=== PATIENT | female | born 1945 | race African-American/Black ===

== ENCOUNTER 2017-11-07 10:08 | Inpatient (IN) | payer OTHER ==
[~2017-11-07] VITALS: Ht 160 cm; Wt 68.5 kg
[~2017-11-07 10:08] MED LIST: ATEN-42 PO; ATOR10TA69 PO; FURO40TA5 PO; LOSA100T14 PO; SODI650T PO
[2017-11-07 11:04] LABS: HEMATOCRIT. 37.5 % (36.0-48.0); HEMOGLOBIN. 11.9 g/dL (12.0-16.0); MEAN CORPUSCULAR HEMOGLOBIN 24.5 pg (28.0-32.0); MEAN CORPUSCULAR VOLUME 77.4 fL (81.0-99.0); PLATELET 113 x1000/uL (130-400); RED BLOOD CELL COUNT 4.84 mill/uL (4.2-5.4); RED CELL DISTRIBUTION WIDTH 17.8 % (11.6-14.6)
[2017-11-07 11:15] LABS: AMMONIA < 10 uMol/L (<32)
[2017-11-07 11:17] LABS: CHLORIDE 93 mEq/L (98-107)
[2017-11-07 11:24] LABS: PLATELET ESTIMATE SLIGHTLY DECREASED
[2017-11-07] MEDS ORDERED: PIPERACILLIN/TAZ 3.375G PREMIX 50 ML IV NR (11:45)
[2017-11-07] MEDS ORDERED: VANCOMYCIN 500 MG in DEXT 5% WATER 100 ML IV SCH (11:45)
[2017-11-07] MEDS ORDERED: METOPROLOL TARTRATE 25MG TABLET PO ONE (12:00)
[2017-11-07] MEDS ORDERED: ENOXAPARIN 60MG/0.6ML SYR SUBCUT ONE (12:00)
[2017-11-07] MEDS ORDERED: ASPIRIN 325MG EC TABLET PO ONE (12:00)
[2017-11-07 12:21] LABS: INR 1.3; PARTIAL THROMBOPLASTIN TIME 34.4 sec (23.4-31.0); PROTHROMBIN TIME 13.2 sec (9.4-11.6)
[2017-11-07] MEDS ORDERED: ASPIRIN 300MG SUPP PR ONE (12:45)
[2017-11-07 15:48] VITALS: BP 95/56
[2017-11-07 16:00] VITALS: BP 114/37
[2017-11-07] MEDS ORDERED: DOCUSATE SODIUM 100MG CAPSULE PO PRN (16:30)
[2017-11-07] MEDS ORDERED: NA PHOS,M-B/NA PHOS,DI-BA ENEMA 118ML PR PRN (16:30)
[2017-11-07] MEDS ORDERED: CLONIDINE 0.1MG TABLET PO PRN (16:30)
[2017-11-07] MEDS ORDERED: MAGNESIUM/ALUMINUM HYDROXIDE/SIMETHICONE 30ML UDC PO PRN (16:30)
[2017-11-07] MEDS ORDERED: GUAIFENESIN 200MG/10ML SUGAR FREE UDC PO PRN (16:30)
[2017-11-07] MEDS ORDERED: ONDANSETRON HCL 4MG/2ML VIAL IV PRN (16:30)
[2017-11-07] MEDS ORDERED: DIPHENHYDRAMINE 50MG/ML VIAL IV PRN (16:30)
[2017-11-07] MEDS ORDERED: LORAZEPAM 2MG/ML CPJ IV PRN (16:30)
[2017-11-07] MEDS ORDERED: IPRATROPIUM/ALBUTEROL 0.5-3(2.5)MG/3ML NEB INH PRN (16:30)
[2017-11-07] MEDS ORDERED: ISOS30TA6 PO (16:44)
[2017-11-07] MEDS ORDERED: ASPI-1159 MT (16:44)
[2017-11-07] MEDS: HYDROMORPHONE HCL/PF 2MG/ML CPJ IV PRN ×2 (16:53→21:00)
[2017-11-07 17:52] VITALS: BP 100/43
[2017-11-07] MEDS ORDERED: LEVOFLOXACIN 500MG PREMIX 100 ML IV NR (18:00)
[2017-11-07 20:00] VITALS: BP 103/52
[2017-11-07] MEDS: BLOOD SUGAR DIAGNOSTIC STRIP TEST SCH (21:00)
[2017-11-07] MEDS ORDERED: ACETAMINOPHEN 650MG SUPP PR PRN (21:30)
[2017-11-07] MEDS: INSULIN LISPRO 100 UNITS/ML SUBCUT SCH (21:37)
[2017-11-07 22:00] VITALS: BP 90/37
[2017-11-08] VITALS (42 sets, daily range): BP systolic 49–139; BP diastolic 23–77
[2017-11-08] MEDS: DEXTROSE 50% WATER 50ML SYRINGE IV PRN (06:03)
[2017-11-08] MEDS: HYDROMORPHONE HCL/PF 2MG/ML CPJ IV PRN ×2 (06:23→22:16)
[2017-11-08] MEDS: BLOOD SUGAR DIAGNOSTIC STRIP TEST SCH ×4 (06:45→20:45)
[2017-11-08 07:13] LABS: HEMATOCRIT. 36.9 % (36.0-48.0); HEMOGLOBIN. 11.5 g/dL (12.0-16.0); MEAN CORPUSCULAR HEMOGLOBIN 24.7 pg (28.0-32.0); MEAN CORPUSCULAR VOLUME 79.1 fL (81.0-99.0); MEAN PLATELET VOLUME 12.4 fl (7.4-10.4); PLATELET 86 x1000/uL (130-400); RED BLOOD CELL COUNT 4.67 mill/uL (4.2-5.4); RED CELL DISTRIBUTION WIDTH 17.8 % (11.6-14.6)
[2017-11-08] MEDS: INSULIN LISPRO 100 UNITS/ML SUBCUT SCH ×4 (07:20→20:45)
[2017-11-08 07:59] LABS: CHLORIDE 96 mEq/L (98-107)
[2017-11-08 08:07] LABS: LDL CHOLESTEROL 39 mg/dL (5-100)
[2017-11-08 08:08] LABS: HDL CHOLESTEROL 13 mg/dL (40-59)
[2017-11-08 08:09] LABS: T4 FREE 1.54 ng/dL (0.76-1.46)
[2017-11-08 08:34] LABS: BG BASE EXCESS -3.3 mmol/L (-2.0-2.0); BG CARBOXYHEMOGLOBIN 1.2 % (0.5-1.5); BG DEOXYHEMOGLOBIN 6.1 % (0.0-5.0); BG FRACTION INSPIRED OXYGEN 21; BG HCO3 ACT 21.2 mmol/L (22.0-26.0); BG METHEMOGLOBIN 0.1 % (0.0-1.5); BG OXYHEMOGLOBIN 92.6 % (94.0-97.0); BG PCO2 36.4 mmHg (35.0-45.0); BG PH 7.383 (7.350-7.450); BG PO2 74.1 mmHg (75.0-100.0); BG SAMPLE SITE RIGHT BRACHIAL; BG TOTAL HEMOGLOBIN 12.2 g/dL (12.0-18.0); BG VENT MODE ROOM AIR
[2017-11-08] MEDS ORDERED: ASPIRIN 81MG EC TABLET PO SCH (09:00)
[2017-11-08] MEDS ORDERED: ENOXAPARIN 30MG/0.3ML SYR SUBCUT SCH (09:00)
[2017-11-08] MEDS ORDERED: ENOXAPARIN 80MG/0.8ML SYR SUBCUT SCH (11:00)
[2017-11-08] MEDS: METOPROLOL TARTRATE 25MG TABLET PO SCH ×2 (11:00→20:45)
[2017-11-08] MEDS ORDERED: SODIUM BICARBONATE 8.4% 1 MEQ/ML 50ML SYR IV NR (12:18)
[2017-11-08] MEDS: ASPIRIN 81MG TABLET PO SCH (12:42)
[2017-11-08 13:18] LABS: PLATELET ESTIMATE DECREASED
[2017-11-08] MEDS: SODIUM BICARBONATE 50 MEQ in DEXTROSE 5% WATER 1,000 ML IV SCH (14:00)
[2017-11-08 14:38] LABS: CREATINE KINASE 2314 IU/L (26-192)
[2017-11-08] MEDS ORDERED: VANCOMYCIN 750 MG PREMIX 150 ML IV NR (15:00)
[2017-11-08] MEDS: PIPERACILLIN/TAZ 2.25G PREMIX 50 ML IV SCH ×2 (15:47→22:23)
[2017-11-08] MEDS: HYDROCODONE/ACETAMINOPHEN 5/325MG TABLET PO PRN (17:01)
[2017-11-08] MEDS ORDERED: PHENYLEPHRINE 20 MG in DEXT 5% WATER 248 ML IV PRN ×2 (22:15→22:45)
[2017-11-08] MEDS ORDERED: NOREPINEPHRINE 8 MG in DEXT 5% WATER 242 ML IV PRN (22:45)
[2017-11-08] MEDS: NOREPINEPHRINE 8 MG in DEXT 5% WATER 242 ML IV PRN (22:57)
[2017-11-09] VITALS (106 sets, daily range): BP systolic 87–165; BP diastolic 31–90
[2017-11-09] MEDS: INSULIN LISPRO 100 UNITS/ML SUBCUT SCH ×4 (08:19→21:51)
[2017-11-09] MEDS: DEXTROSE 50% WATER 50ML SYRINGE IV PRN ×2 (08:19→08:51)
[2017-11-09] MEDS: BLOOD SUGAR DIAGNOSTIC STRIP TEST SCH ×4 (08:19→21:50)
[2017-11-09] MEDS: PIPERACILLIN/TAZ 2.25G PREMIX 50 ML IV SCH ×3 (08:23→21:50)
[2017-11-09] MEDS: ASPIRIN 81MG TABLET PO SCH ×2 (08:52→15:27)
[2017-11-09] MEDS: METOPROLOL TARTRATE 25MG TABLET PO SCH ×2 (08:52→21:00)
[2017-11-09] MEDS ORDERED: SODIUM BICARBONATE 4% (2.4MEQ) 5ML VIAL IV ONE (09:08)
[2017-11-09] MEDS ORDERED: LIDOCAINE HCL/PF 1% 10 MG/ML 5ML VIAL ONE (09:08)
[2017-11-09 11:06] LABS: HEMATOCRIT. 34.1 % (36.0-48.0); HEMOGLOBIN. 11.1 g/dL (12.0-16.0); MEAN CORPUSCULAR HEMOGLOBIN 24.9 pg (28.0-32.0); MEAN CORPUSCULAR VOLUME 76.7 fL (81.0-99.0); MEAN PLATELET VOLUME 10.7 fl (7.4-10.4); PLATELET 71 x1000/uL (130-400); RED BLOOD CELL COUNT 4.45 mill/uL (4.2-5.4); RED CELL DISTRIBUTION WIDTH 16.8 % (11.6-14.6)
[2017-11-09 12:10] LABS: PLATELET ESTIMATE DECREASED
[2017-11-09] MEDS: PANTOPRAZOLE SODIUM 40 MG/VIAL IV SCH (13:03)
[2017-11-09] MEDS ORDERED: VANCOMYCIN 1 G PREMIX 200 ML IV SCH (14:30)
[2017-11-09] MEDS: ACETAMINOPHEN 325MG TABLET PO PRN (15:26)
[2017-11-09] MEDS: SODIUM BICARBONATE 50 MEQ in DEXTROSE 5% WATER 1,000 ML IV SCH (16:28)
[2017-11-09] MEDS ORDERED: IOHEXOL-300 100 ML BOTTLE ONE (17:43)
[2017-11-09] MEDS ORDERED: LEVOFLOXACIN 250MG PREMIX 50 ML IV SCH (18:00)
[2017-11-10] VITALS (45 sets, daily range): BP systolic 97–164; BP diastolic 38–85
[2017-11-10] MEDS: HYDROCODONE/ACETAMINOPHEN 5/325MG TABLET PO PRN (02:13)
[2017-11-10 03:33] LABS: BG BASE EXCESS 4.4 mmol/L (-2.0-2.0); BG DEOXYHEMOGLOBIN 1.2 % (0.0-5.0); BG FRACTION INSPIRED OXYGEN 32; BG HCO3 ACT 28.9 mmol/L (22.0-26.0); BG METHEMOGLOBIN 0.3 % (0.0-1.5); BG OXYGEN SATURATION 98.8 % (92.0-98.5); BG OXYHEMOGLOBIN 97.5 % (94.0-97.0); BG PCO2 42.9 mmHg (35.0-45.0); BG PH 7.447 (7.350-7.450); BG PO2 132.3 mmHg (75.0-100.0); BG SAMPLE SITE RIGHT RADIAL; BG TOTAL HEMOGLOBIN 13.8 g/dL (12.0-18.0); BG VENT MODE NASAL CANNULA
[2017-11-10 05:39] LABS: BASOPHILS % 0.2 % (0.0-2.0); EOSINOPHILS % 0.6 % (0.0-5.0); HEMATOCRIT. 36.5 % (36.0-48.0); HEMOGLOBIN. 12.1 g/dL (12.0-16.0); LYMPHOCYTES % 9.1 % (20.0-50.0); MEAN CORPUSCULAR HEMOGLOBIN 25.4 pg (28.0-32.0); MEAN CORPUSCULAR VOLUME 76.4 fL (81.0-99.0); MONOCYTES % 8.6 % (2.0-8.0); NEUTROPHILS % 81.5 % (40.0-76.0); RED BLOOD CELL COUNT 4.78 mill/uL (4.2-5.4)
[2017-11-10] MEDS: PIPERACILLIN/TAZ 2.25G PREMIX 50 ML IV SCH ×3 (06:26→21:38)
[2017-11-10] MEDS: BLOOD SUGAR DIAGNOSTIC STRIP TEST SCH ×3 (08:34→18:08)
[2017-11-10] MEDS: METOPROLOL TARTRATE 25MG TABLET PO SCH ×2 (09:00→21:00)
[2017-11-10] MEDS: ASPIRIN 81MG TABLET PO SCH (09:00)
[2017-11-10] MEDS: PANTOPRAZOLE SODIUM 40 MG/VIAL IV SCH (09:29)
[2017-11-10] MEDS: INSULIN LISPRO 100 UNITS/ML SUBCUT SCH ×3 (09:29→18:04)
[2017-11-10] MEDS ORDERED: INSULIN LISPRO 100 UNITS/ML SUBCUT SCH (12:00)
[2017-11-10 15:27] LABS: MEAN PLATELET VOLUME 12.7 fl (7.4-10.4); PLATELET 82 x1000/uL (130-400)
[2017-11-10] MEDS: CEFAZOLIN 2,000 MG in DEXT 5% WATER 100 ML IV SCH (18:00)
[2017-11-10] MEDS ORDERED: DOCUSATE SODIUM SUGAR FREE 100MG/10ML UDC PO PRN (18:00)
[2017-11-11] VITALS (65 sets, daily range): BP systolic 55–170; BP diastolic 15–74
[2017-11-11] MEDS: BLOOD SUGAR DIAGNOSTIC STRIP TEST SCH ×5 (00:39→23:20)
[2017-11-11] MEDS: INSULIN LISPRO 100 UNITS/ML SUBCUT SCH ×5 (00:40→23:24)
[2017-11-11] MEDS: PIPERACILLIN/TAZ 2.25G PREMIX 50 ML IV SCH ×3 (05:39→21:16)
[2017-11-11 06:17] LABS: BASOPHILS % 0.3 % (0.0-2.0); EOSINOPHILS % 0.7 % (0.0-5.0); HEMOGLOBIN. 10.7 g/dL (12.0-16.0); MEAN CORPUSCULAR HEMOGLOBIN 24.3 pg (28.0-32.0); MEAN CORPUSCULAR VOLUME 75.2 fL (81.0-99.0); MONOCYTES % 7.1 % (2.0-8.0); NEUTROPHILS % 76.9 % (40.0-76.0); RED BLOOD CELL COUNT 4.39 mill/uL (4.2-5.4); RED CELL DISTRIBUTION WIDTH 16.9 % (11.6-14.6)
[2017-11-11 06:49] LABS: MEAN PLATELET VOLUME 11.5 fl (7.4-10.4)
[2017-11-11 06:52] LABS: PLATELET 77 x1000/uL (130-400)
[2017-11-11] MEDS: METOPROLOL TARTRATE 25MG TABLET PO SCH (09:00)
[2017-11-11] MEDS: PANTOPRAZOLE SODIUM 40 MG/VIAL IV SCH (09:04)
[2017-11-11] MEDS: ASPIRIN 81MG TABLET PO SCH (09:05)
[2017-11-11] MEDS: NOREPINEPHRINE 8 MG in DEXT 5% WATER 242 ML IV PRN ×2 (10:14→18:23)
[2017-11-11] MEDS: IPRATROPIUM/ALBUTEROL 0.5-3(2.5)MG/3ML NEB HHN SCH ×2 (12:58→20:12)
[2017-11-11] MEDS ORDERED: SODIUM CHLORIDE 0.9% 250 ML IV NR (14:30)
[2017-11-11] MEDS: CEFAZOLIN 2,000 MG in DEXT 5% WATER 100 ML IV SCH (14:33)
[2017-11-11 14:55] LABS: BG BASE EXCESS 4.9 mmol/L (-2.0-2.0); BG CARBOXYHEMOGLOBIN 0.9 % (0.5-1.5); BG DEOXYHEMOGLOBIN 0.3 % (0.0-5.0); BG FRACTION INSPIRED OXYGEN 99.8; BG HCO3 ACT 28.4 mmol/L (22.0-26.0); BG METHEMOGLOBIN 0.3 % (0.0-1.5); BG OXYGEN SATURATION 99.7 % (92.0-98.5); BG OXYHEMOGLOBIN 98.5 % (94.0-97.0); BG PH 7.492 (7.350-7.450); BG PO2 438.3 mmHg (75.0-100.0); BG SAMPLE SITE RIGHT RADIAL; BG TOTAL HEMOGLOBIN 12.7 g/dL (12.0-18.0); BG VENT MODE MASK - NRB
[2017-11-11] MEDS ORDERED: NOREPINEPHRINE BITARTRATE 1MG/ML 4ML IV ONE (18:24)
[2017-11-12] VITALS (89 sets, daily range): BP systolic 75–148; BP diastolic 20–82
[2017-11-12] MEDS: NOREPINEPHRINE 8 MG in DEXT 5% WATER 242 ML IV PRN ×3 (00:39→20:12)
[2017-11-12] MEDS: IPRATROPIUM/ALBUTEROL 0.5-3(2.5)MG/3ML NEB HHN SCH ×4 (01:56→20:43)
[2017-11-12] MEDS: BLOOD SUGAR DIAGNOSTIC STRIP TEST SCH ×3 (05:11→17:23)
[2017-11-12] MEDS: PIPERACILLIN/TAZ 2.25G PREMIX 50 ML IV SCH (05:14)
[2017-11-12] MEDS: INSULIN LISPRO 100 UNITS/ML SUBCUT SCH ×3 (05:16→17:35)
[2017-11-12 06:01] LABS: BASOPHILS % 0.2 % (0.0-2.0); EOSINOPHILS % 0.2 % (0.0-5.0); HEMATOCRIT. 37.1 % (36.0-48.0); LYMPHOCYTES % 9.9 % (20.0-50.0); MEAN CORPUSCULAR HEMOGLOBIN 24.5 pg (28.0-32.0); MEAN CORPUSCULAR VOLUME 75.7 fL (81.0-99.0); MONOCYTES % 7.8 % (2.0-8.0); NEUTROPHILS % 81.9 % (40.0-76.0); RED CELL DISTRIBUTION WIDTH 16.9 % (11.6-14.6)
[2017-11-12] MEDS: ACETAMINOPHEN 325MG TABLET PO PRN (06:21)
[2017-11-12 08:03] LABS: PLATELET 105 x1000/uL (130-400)
[2017-11-12] MEDS: PANTOPRAZOLE SODIUM 40 MG/VIAL IV SCH (09:46)
[2017-11-12] MEDS ORDERED: ACETAMINOPHEN 325MG TABLET PO PRN (10:00)
[2017-11-12] MEDS: NYSTATIN POWDER 15GM TOP SCH ×2 (12:35→17:23)
[2017-11-12] MEDS ORDERED: MEROPENEM 500 MG in SODIUM CHLORIDE 0.9% 50 ML IV SCH (14:00)
[2017-11-12] MEDS: CEFAZOLIN 2,000 MG in DEXT 5% WATER 100 ML IV SCH (15:05)
[2017-11-12] MEDS ORDERED: NYSTATIN POWDER 15GM TOP SCH (19:00)
[2017-11-12] MEDS ORDERED: LORAZEPAM 2MG/ML CPJ IV PRN (20:45)
[2017-11-12] MEDS ORDERED: MORPHINE SULFATE 250 MG in DEXT 5% WATER 240 ML IV PRN (21:30)
[2017-11-13] VITALS (10 sets, daily range): BP systolic 52–65; BP diastolic 16–30
== END 2017-11-13 08:43 | disposition expired | DRG 871 ==
LOC: ER 10:15 → 3WST 13:23 → EDBEDREQ 13:28 → ENRESERV 13:46 → CANRESERV 13:46 → EDBEDREQSVC 14:02 → ENRESERV 15:05 → CVICU 11-08 21:25
PROVIDERS: ADMIT Internal Medicine; ATTEND Internal Medicine
PROC: 5A1D70Z Performance of Urinary Filtration, Intermittent, Less than 6 Hours Per Day (ICD-10-PCS; 2017-11-08)
PROC: 02HV33Z Insertion of Infusion Device into Superior Vena Cava, Percutaneous Approach (ICD-10-PCS; principal; 2017-11-09)
PROC: B548ZZA Ultrasonography of Superior Vena Cava, Guidance (ICD-10-PCS; 2017-11-09)
PROC: 4A00X4Z Measurement of Central Nervous Electrical Activity, External Approach (ICD-10-PCS; 2017-11-10)
PROC: 5A1D70Z Performance of Urinary Filtration, Intermittent, Less than 6 Hours Per Day (ICD-10-PCS; 2017-11-11)
PROC: 5A1D70Z Performance of Urinary Filtration, Intermittent, Less than 6 Hours Per Day (ICD-10-PCS; 2017-11-13)
DX: A41.01 Sepsis due to Methicillin susceptible Staphylococcus aureus (principal); N18.6 End stage renal disease; I21.4 Non-ST elevation (NSTEMI) myocardial infarction; I63.9 Cerebral infarction, unspecified; J96.00 Acute respiratory failure, unspecified whether with hypoxia or hypercapnia; K72.00 Acute and subacute hepatic failure without coma; D69.6 Thrombocytopenia, unspecified; N17.0 Acute kidney failure with tubular necrosis; E11.22 Type 2 diabetes mellitus with diabetic chronic kidney disease; G92 Toxic encephalopathy; R65.21 Severe sepsis with septic shock; I50.31 Acute diastolic (congestive) heart failure; E46 Unspecified protein-calorie malnutrition; I13.2 Hypertensive heart and chronic kidney disease with heart failure and with stage 5 chronic kidney disease, or end stage renal disease; M62.82 Rhabdomyolysis; N25.81 Secondary hyperparathyroidism of renal origin; S42.031A Displaced fracture of lateral end of right clavicle, initial encounter for closed fracture; Z66 Do not resuscitate; E87.5 Hyperkalemia; G90.8 Other disorders of autonomic nervous system; E78.5 Hyperlipidemia, unspecified; I25.10 Atherosclerotic heart disease of native coronary artery without angina pectoris; I27.20 Pulmonary hypertension, unspecified; I48.91 Unspecified atrial fibrillation; D63.8 Anemia in other chronic diseases classified elsewhere; I50.9 Heart failure, unspecified; W06.XXXA Fall from bed, initial encounter; Z79.82 Long term (current) use of aspirin; Z80.3 Family history of malignant neoplasm of breast; Z99.2 Dependence on renal dialysis; Z68.26 Body mass index [BMI] 26.0-26.9, adult; I25.2 Old myocardial infarction; Y93.89 Activity, other specified; Y92.89 Other specified places as the place of occurrence of the external cause; Y99.8 Other external cause status
CPT/HCPCS: 36415; 36569; 36600; 70450; 70470; 71045; 73030; 76937; 80048; 80053; 80061; 80076; 80202; 82140; 82375; 82550; 82805; 82962; 83605; 83690; 84439; 84443; 84484; 85025; 85610; 85730; 87040; 87077; 93005; 93306; 93880; 94640; 96374; 96375; 97162; 97167; 99291; C1725; C9113; J0690; J1170; J1650; J1815; J1956; J2060; J2185; J2274; J2543; J3370; J3490; J7030; J7040; J7050; J7060; J7070; J7620; Q9967